=== PATIENT | male | born 1950 | race Caucasian/White ===

== ENCOUNTER → 2017-01-09 | Outpatient (CLI) | payer OTHER ==
[~2017-01-09] MED LIST: FISH OIL 1,0001 EAC7 PO; MELATONIN10 M1 PO; VITAMIN D400 UNIT PO
== END | disposition home or self-care (01) ==
DX: R13.11 Dysphagia, oral phase (principal); R13.13 Dysphagia, pharyngeal phase
CPT/HCPCS: 92611 GN; G8996 GN; G8997 GN; G8998 GN